=== PATIENT | female | born 1935 | race Caucasian/White ===

== ENCOUNTER 2016-09-05 16:19 | Inpatient (IN) | payer OTHER, BC ==
[~2016-09-05] VITALS: Ht 157.5 cm; Wt 69.5 kg
[~2016-09-05 16:19] MED LIST: AMLO10TA2 PO; AMLO5TAB4 PO; ASPI-515 PO; CALC-141 PO; CALC0.25 PO; CALC0.254 PO; CEFD300C37 PO; CLON0.3T47 PO; ENOX40SY4 SQ; FURO-93 PO; GABA100C PO; GABA100C8 PO; HYDR25TA11 PO; INSU100C5 SQ-INSULIN; INSU100I28 SQ-INSULIN; LEVO112C2 PO; LEVO112T25 PO; LEVO125T PO; LINE600T37 PO; MULT-6 PO; PANT40GR PO; PANT40TA5 PO; POTA10CA PO; POTA10TA57 PO; ROSU10TA PO; SPIR50TA2 PO
[2016-09-05] MEDS ORDERED: SODIUM CHLORIDE FLUSH 10ML SYR IVF ONE (17:00)
[2016-09-05 17:06] LABS: ASPARTATE AMINO TRANSFERASE 42 U/L (15-37); BLOOD UREA NITROGEN 37 mg/dL (7-18)
[2016-09-05 17:17] LABS: IS PT STATUS REG ER OR PRE ER? NO
[2016-09-05] MEDS ORDERED: FUROSEMIDE 40 MG/4 ML ONE (17:58)
[2016-09-05] MEDS ORDERED: FUROSEMIDE 40 MG/4 ML IV ONE (18:00)
[2016-09-05] MEDS ORDERED: GLUCAGON 1 MG IM PRN (19:30)
[2016-09-05] MEDS ORDERED: DEXTROSE 4 GM TAB.CHEW PO PRN (19:30)
[2016-09-05] MEDS ORDERED: POLYETHYLENE GLYCOL 17 GM PACKET PO PRN (19:30)
[2016-09-05] MEDS ORDERED: DOCUSATE 100 MG CAPSULE PO PRN (19:30)
[2016-09-05] MEDS ORDERED: BISACODYL 10 MG SUPP PR PRN (19:30)
[2016-09-05] MEDS ORDERED: ONDANSETRON 2MG/ML, 2ML IVPush PRN (19:30)
[2016-09-05] MEDS ORDERED: DEXTROSE 50%, 50ML SYRINGE IVPush PRN (19:30)
[2016-09-05 19:40] VITALS: BP 105/73
[2016-09-05] MEDS: ALBUTEROL SULFATE 2.5 MG/3 ML NPPB PRN (20:36)
[2016-09-05 20:49] VITALS: BP 105/73
[2016-09-05] MEDS ORDERED: CIT PO SCH (21:00)
[2016-09-05] MEDS: LEVOTHYROXINE 125 MCG TABLET PO SCH (21:00)
[2016-09-05] MEDS ORDERED: [UNRECOGNIZED DRUG - OTHER] PO SCH (21:00)
[2016-09-05] MEDS ORDERED: VIT D3 PO SCH (21:00)
[2016-09-05] MEDS ORDERED: CALCIUM CARB PO SCH (21:00)
[2016-09-05] MEDS: SODIUM CHLORIDE FLUSH 3ML SYRINGE IVF SCH (21:00)
[2016-09-05] MEDS ORDERED: AMLODIPINE 5 MG TABLET PO SCH (21:00)
[2016-09-05] MEDS: GABAPENTIN 100 MG CAPSULE PO SCH (21:58)
[2016-09-05] MEDS: SODIUM CHLORIDE FLUSH 10ML SYR IVF SCH (21:58)
[2016-09-05] MEDS: HEPARIN 5,000 UNITS/ML, 1ML SQ SCH (21:58)
[2016-09-05] MEDS: INSULIN ASPART 100 UNITS/ML, PEN SQ-INSULIN SCH (23:17)
[2016-09-06 00:04] LABS: IS PT STATUS REG ER OR PRE ER? NO
[2016-09-06 00:48] VITALS: BP 88/57
[2016-09-06 05:25] LABS: BLOOD UREA NITROGEN 36 mg/dL (7-18)
[2016-09-06 05:32] LABS: ASPARTATE AMINO TRANSFERASE 15 U/L (15-37)
[2016-09-06 05:34] LABS: IS PT STATUS REG ER OR PRE ER? NO
[2016-09-06] MEDS: HEPARIN 5,000 UNITS/ML, 1ML SQ SCH ×3 (06:11→21:06)
[2016-09-06] MEDS: SODIUM CHLORIDE FLUSH 3ML SYRINGE IVF SCH ×2 (07:41→21:00)
[2016-09-06] MEDS: SODIUM CHLORIDE FLUSH 10ML SYR IVF SCH (07:41)
[2016-09-06] MEDS: ASPIRIN 81 MG TABLET EC PO SCH (07:42)
[2016-09-06] MEDS: GABAPENTIN 100 MG CAPSULE PO SCH ×3 (07:42→21:07)
[2016-09-06] MEDS: MULTIVITAMIN 1 TABLET PO SCH (07:43)
[2016-09-06] MEDS: CALCITRIOL 0.25 MCG CAPSULE PO SCH (07:43)
[2016-09-06] MEDS: PANTOPROZOLE 40MG TABLET PO SCH (07:43)
[2016-09-06 07:50] VITALS: BP 89/62
[2016-09-06] MEDS: AMLODIPINE 5 MG TABLET PO SCH ×2 (09:00→21:07)
[2016-09-06] MEDS ORDERED: SPIRONOLACTONE 50 MG TABLET PO SCH ×2 (09:00)
[2016-09-06] MEDS: FUROSEMIDE 40 MG/4 ML IV SCH ×2 (09:00→13:16)
[2016-09-06] MEDS ORDERED: FUROSEMIDE 40 MG/4 ML IV SCH (09:00)
[2016-09-06] MEDS: INSULIN ASPART 100 UNITS/ML, PEN SQ-INSULIN SCH ×4 (09:49→21:10)
[2016-09-06] MEDS ORDERED: POTASSIUM CHLORIDE 20 MEQ TAB.ER.PRT PO SCH (10:00)
[2016-09-06] MEDS: INSULIN DETEMIR 100 UNITS/ML, PEN SQ-INSULIN SCH ×2 (13:10→21:09)
[2016-09-06] MEDS: POTASSIUM CHLORIDE 20 MEQ TAB.ER.PRT PO SCH (13:11)
[2016-09-06 13:20] VITALS: BP 102/62
[2016-09-06] MEDS: ALBUTEROL SULFATE 2.5 MG/3 ML NPPB PRN (15:30)
[2016-09-06] MEDS: ACETAMINOPHEN 325 MG TABLET PO PRN (17:25)
[2016-09-06 17:27] VITALS: BP 93/64
[2016-09-06 18:37] VITALS: BP 118/67
[2016-09-06] MEDS: LEVOTHYROXINE 125 MCG TABLET PO SCH (21:07)
[2016-09-07 02:01] VITALS: BP 86/56
[2016-09-07] MEDS: ACETAMINOPHEN 325 MG TABLET PO PRN (02:22)
[2016-09-07] MEDS: HEPARIN 5,000 UNITS/ML, 1ML SQ SCH ×3 (05:28→20:50)
[2016-09-07 07:56] VITALS: BP 95/62
[2016-09-07] MEDS: INSULIN ASPART 100 UNITS/ML, PEN SQ-INSULIN SCH ×4 (08:11→20:50)
[2016-09-07] MEDS: FUROSEMIDE 40 MG/4 ML IV SCH (08:11)
[2016-09-07] MEDS: INSULIN DETEMIR 100 UNITS/ML, PEN SQ-INSULIN SCH ×3 (08:11→20:51)
[2016-09-07] MEDS: AMLODIPINE 5 MG TABLET PO SCH (08:12)
[2016-09-07] MEDS: CALCITRIOL 0.25 MCG CAPSULE PO SCH (08:13)
[2016-09-07] MEDS: ASPIRIN 81 MG TABLET EC PO SCH (08:13)
[2016-09-07] MEDS: MULTIVITAMIN 1 TABLET PO SCH (08:13)
[2016-09-07] MEDS: POTASSIUM CHLORIDE 20 MEQ TAB.ER.PRT PO SCH ×2 (08:14→12:04)
[2016-09-07] MEDS: GABAPENTIN 100 MG CAPSULE PO SCH ×3 (08:14→20:50)
[2016-09-07] MEDS: SODIUM CHLORIDE FLUSH 3ML SYRINGE IVF SCH ×2 (08:15→21:00)
[2016-09-07] MEDS: PANTOPROZOLE 40MG TABLET PO SCH (08:15)
[2016-09-07 11:56] VITALS: BP 93/61
[2016-09-07] MEDS: FUROSEMIDE 20 MG/2 ML IV SCH ×2 (12:04→17:51)
[2016-09-07 12:47] VITALS: BP 90/59
[2016-09-07 17:54] VITALS: BP 93/65
[2016-09-07 19:46] VITALS: BP 118/75
[2016-09-07] MEDS: LEVOTHYROXINE 125 MCG TABLET PO SCH (20:50)
[2016-09-07] MEDS: ALBUTEROL SULFATE 2.5 MG/3 ML NPPB PRN (21:35)
[2016-09-08 00:11] VITALS: BP 94/59
[2016-09-08] MEDS: ALBUTEROL SULFATE 2.5 MG/3 ML NPPB PRN ×2 (01:02→22:53)
[2016-09-08] MEDS: ACETAMINOPHEN 325 MG TABLET PO PRN (01:55)
[2016-09-08 05:51] LABS: BLOOD UREA NITROGEN 26 mg/dL (7-18)
[2016-09-08] MEDS: FUROSEMIDE 20 MG/2 ML IV SCH ×2 (07:30→16:39)
[2016-09-08 07:53] VITALS: BP 109/72
[2016-09-08] MEDS: HEPARIN 5,000 UNITS/ML, 1ML SQ SCH ×3 (08:54→23:18)
[2016-09-08] MEDS: INSULIN ASPART 100 UNITS/ML, PEN SQ-INSULIN SCH ×4 (08:55→22:34)
[2016-09-08] MEDS: SODIUM CHLORIDE FLUSH 3ML SYRINGE IVF SCH ×2 (08:56→21:00)
[2016-09-08] MEDS: GABAPENTIN 100 MG CAPSULE PO SCH ×3 (08:56→22:33)
[2016-09-08] MEDS: POTASSIUM CHLORIDE 20 MEQ TAB.ER.PRT PO SCH (08:56)
[2016-09-08] MEDS: ASPIRIN 81 MG TABLET EC PO SCH (08:56)
[2016-09-08] MEDS: MULTIVITAMIN 1 TABLET PO SCH (08:57)
[2016-09-08] MEDS: CALCITRIOL 0.25 MCG CAPSULE PO SCH (08:57)
[2016-09-08] MEDS: PANTOPROZOLE 40MG TABLET PO SCH (08:57)
[2016-09-08] MEDS ORDERED: FUROSEMIDE 40 MG/4 ML IV SCH (09:00)
[2016-09-08] MEDS ORDERED: ERGOCALCIFEROL 50,000 UNIT CAPSULE PO SCH (11:30)
[2016-09-08] MEDS: INSULIN DETEMIR 100 UNITS/ML, PEN SQ-INSULIN SCH ×2 (11:40→22:34)
[2016-09-08 14:30] VITALS: BP 117/71
[2016-09-08 19:21] VITALS: BP 108/71
[2016-09-08] MEDS: LEVOTHYROXINE 125 MCG TABLET PO SCH (22:33)
[2016-09-09 01:17] VITALS: BP 99/62
[2016-09-09 06:31] VITALS: BP 106/68
[2016-09-09 07:46] LABS: BLOOD UREA NITROGEN 19 mg/dL (7-18)
[2016-09-09] MEDS: FUROSEMIDE 20 MG/2 ML IV SCH ×2 (08:42→17:00)
[2016-09-09] MEDS: HEPARIN 5,000 UNITS/ML, 1ML SQ SCH ×2 (08:42→15:00)
[2016-09-09] MEDS: GABAPENTIN 100 MG CAPSULE PO SCH ×2 (08:43→16:00)
[2016-09-09] MEDS: POTASSIUM CHLORIDE 20 MEQ TAB.ER.PRT PO SCH (08:43)
[2016-09-09] MEDS: PANTOPROZOLE 40MG TABLET PO SCH (08:43)
[2016-09-09] MEDS: MULTIVITAMIN 1 TABLET PO SCH (08:43)
[2016-09-09] MEDS: CALCITRIOL 0.25 MCG CAPSULE PO SCH (08:43)
[2016-09-09] MEDS: ASPIRIN 81 MG TABLET EC PO SCH (08:43)
[2016-09-09] MEDS: INSULIN ASPART 100 UNITS/ML, PEN SQ-INSULIN SCH ×3 (08:43→16:00)
[2016-09-09] MEDS: SODIUM CHLORIDE FLUSH 3ML SYRINGE IVF SCH (08:44)
[2016-09-09 13:11] VITALS: BP 135/80
[2016-09-09] MEDS: INSULIN DETEMIR 100 UNITS/ML, PEN SQ-INSULIN SCH (13:27)
[2016-09-09] MEDS ORDERED: DOCU-30 PO (17:10)
[2016-09-09] MEDS ORDERED: ERGO500017 PO (17:10)
[2016-09-09] MEDS ORDERED: POTA20TA6 PO (17:10)
[2016-09-09] MEDS ORDERED: FURO-93 PO (17:10)
[2016-09-09] MEDS ORDERED: INSU100I28 SQ-INSULIN (17:19)
== END 2016-09-09 17:56 | disposition home health service (06) | DRG 291 ==
LOC: ED 18:05 → EDIP 18:06 → ED 18:22 → 4EST 19:25
DX: I13.0 Hypertensive heart and chronic kidney disease with heart failure and stage 1 through stage 4 chronic kidney disease, or unspecified chronic kidney disease (principal); I50.33 Acute on chronic diastolic (congestive) heart failure; J96.01 Acute respiratory failure with hypoxia; E43 Unspecified severe protein-calorie malnutrition; N17.0 Acute kidney failure with tubular necrosis; D64.9 Anemia, unspecified; E03.9 Hypothyroidism, unspecified; E78.5 Hyperlipidemia, unspecified; E11.22 Type 2 diabetes mellitus with diabetic chronic kidney disease; E11.42 Type 2 diabetes mellitus with diabetic polyneuropathy; E55.9 Vitamin D deficiency, unspecified; E87.6 Hypokalemia; I34.0 Nonrheumatic mitral (valve) insufficiency; I48.91 Unspecified atrial fibrillation; N18.9 Chronic kidney disease, unspecified; Z80.9 Family history of malignant neoplasm, unspecified; Z82.49 Family history of ischemic heart disease and other diseases of the circulatory system; Z86.711 Personal history of pulmonary embolism; Z86.73 Personal history of transient ischemic attack (TIA), and cerebral infarction without residual deficits; Z87.891 Personal history of nicotine dependence; Z95.0 Presence of cardiac pacemaker; Z99.81 Dependence on supplemental oxygen; Z68.28 Body mass index [BMI] 28.0-28.9, adult
CPT/HCPCS: 36415; 71010; 80048; 80053; 82306; 82533; 82607; 82947; 82962; 83036; 83735; 83880; 84439; 84443; 84484; 85025; 93005; 93306; 94640; 96374; J1644; J1815; J1940; J7613

== ENCOUNTER → 2017-03-20 | Outpatient (CLI) | payer OTHER, BC ==
[~2017-03-20] MED LIST changes: +DOCU-131 PO; +ERGO500017 PO; +GABA-826 PO; -GABA100C8 PO; -LEVO112T25 PO; +LEVO112T41 PO; +POTA20TA6 PO
== END | disposition home or self-care (01) ==
LOC: CVU 13:44
PROVIDERS: ATTEND Nurse Practitioner
DX: M79.605 Pain in left leg (principal); M79.604 Pain in right leg; E11.9 Type 2 diabetes mellitus without complications
CPT/HCPCS: 93922

== ENCOUNTER 2018-01-27 13:31 | Emergency (ER) | payer OTHER, BC | END 2018-01-27 13:48 | disposition home or self-care (01) | LOC: ED 13:40 | DX: Z02.9 Encounter for administrative examinations, unspecified (principal) ==

== ENCOUNTER → 2018-01-27 | Outpatient (CLI) | payer OTHER, BC ==
[~2018-01-27] MED LIST changes: -AMLO10TA2 PO; +AMLO10TA6 PO; -SPIR50TA2 PO; +SPIR50TA4 PO
== END | disposition home or self-care (01) ==
LOC: RAD 13:48
PROVIDERS: ATTEND Nurse Practitioner
DX: M43.8X4 Other specified deforming dorsopathies, thoracic region (principal)
CPT/HCPCS: 72128

== ENCOUNTER 2019-05-29 20:42 | Inpatient (IN) | payer MEDICARE, BC ==
[~2019-05-29] VITALS: Ht 157.5 cm; Wt 70.5 kg
[~2019-05-29 20:42] MED LIST changes: -AMLO10TA6 PO; +AMLO10TA8 PO; +CLON0.3T PO; -CLON0.3T47 PO; +HYDR-826 PO; -HYDR25TA11 PO; +LINE600T12 PO; -LINE600T37 PO; -ROSU10TA PO; +ROSU10TA2 PO
--- NOTE | 2019-05-29 20:52 | NUR ---
PT BIB EMS TRANSFER FROM [facility] FOR NEURO CONSULT RELATED TO C2/C3 FRACTURES. PT HAS HAD INCREASED FALLS. RECENTLY FELL ON FACE. PT STATES SHE BROKE HER NOSE, CHEEKS ARE BRUISED. PT IN C COLLAR. PT DENIES N/T IN EXTREMETIES, DENIES LOC. PT LIVES W SON. DENIES PAIN. WAITING FOR FURTHER ORDERS.
[2019-05-29] MEDS ORDERED: ACETAMINOPHEN 325 MG TABLET ONE (21:45)
[2019-05-29 21:57] LABS: BASOPHILS # (AUTO) 0.01 x10^3/uL (0-0.1); BASOPHILS % (AUTO) 0 % (0-1); EOSINOPHILS # (AUTO) 0.19 x10^3/uL (0-0.4); EOSINOPHILS % (AUTO) 4 % (1-7); LYMPHOCYTES # (AUTO) 1.47 x10^3/uL (1-3.4); LYMPHOCYTES % (AUTO) 26 % (22-44); MD NO; MEAN CORPUSCULAR HGB CONC 33.7 g/dL (32.4-35.8); MEAN CORPUSCULAR VOLUME 97.9 fL (80-100); MEAN PLATELET VOLUME 9.5 fL (7.4-10.4); MONOCYTES # (AUTO) 0.42 x10^3/uL (0.2-0.8); MONOCYTES % (AUTO) 8 % (2-9); NEUTROPHILS # (AUTO) 3.49 x10^3/uL (1.8-6.8); NEUTROPHILS % (AUTO) 63 % (42-75); PLATELET COUNT 189 x10^3/uL (130-400); RED BLOOD COUNT 4.34 x10^6/uL (3.82-5.3); RED CELL DISTRIBUTION WIDTH 13.1 % (9.6-15.2)
--- NOTE | 2019-05-29 21:57 | NUR ---
ASSISTED PT TO [facility] W FULL ASSIST. MEDICATED W TYLENOL. CALL LIGHT IN REACH. PT HAS CELL PHONE AT BEDSIDE.
[2019-05-29] MEDS ORDERED: ACETAMINOPHEN 325 MG TABLET PO ONE (22:00)
[2019-05-29 22:08] LABS: ALBUMIN 3.1 g/dL (3.4-5.0); ANION GAP 5 mmol/L (5-15); CHLORIDE 98 mmol/L (98-107); CREATININE 1.77 mg/dL (0.55-1.02)
--- NOTE | 2019-05-29 22:42 | NUR ---
PT GIVEN WARM BLANKET, REPOSITIONED FOR COMFORT. PT ATTEMPTED TO CALL SON FOR UPDATED MED LIST.
[2019-05-29] MEDS ORDERED: INSU100V35 SC (23:17)
--- NOTE | 2019-05-29 23:27 | NUR ---
REPORT TO JESSY. PT READY FOR TRANSFER
[2019-05-29] MEDS ORDERED: MORPHINE SULFATE 4 MG/ML, 1ML IVPush PRN (23:30)
[2019-05-29] MEDS ORDERED: ONDANSETRON 2MG/ML, 2ML IVPush PRN (23:30)
[2019-05-30 00:13] VITALS: BP 146/89
[2019-05-30] MEDS ORDERED: LEVOTHYROXINE 125 MCG TABLET PO SCH ×2 (00:30→06:00)
[2019-05-30] MEDS ORDERED: ONDANSETRON ODT 4 MG PO PRN (00:30)
[2019-05-30] MEDS ORDERED: ERGOCALCIFEROL 50,000 UNIT CAPSULE PO SCH (00:30)
[2019-05-30] MEDS ORDERED: LIDODERM 5% PATCH TD PRN (00:30)
[2019-05-30] MEDS ORDERED: DOCUSATE 100 MG CAPSULE PO PRN ×2 (00:30)
[2019-05-30] MEDS: MULTIVITAMIN 1 TABLET PO SCH (07:49)
[2019-05-30] MEDS: FUROSEMIDE 20 MG TABLET PO SCH ×2 (07:49→19:59)
[2019-05-30] MEDS: PANTOPROZOLE 40MG TABLET PO SCH (07:49)
[2019-05-30] MEDS: CALCITRIOL 0.25 MCG CAPSULE PO SCH (07:49)
[2019-05-30] MEDS: CALCIUM/VITAMIN D3 250-125 TABLET PO SCH ×3 (07:49→23:49)
[2019-05-30] MEDS: POTASSIUM CHLORIDE 20 MEQ TAB.ER.PRT PO SCH ×3 (07:49→13:21)
[2019-05-30] MEDS: GABAPENTIN 100 MG CAPSULE PO SCH ×3 (07:49→23:49)
[2019-05-30 07:51] VITALS: BP 147/83
[2019-05-30] MEDS ORDERED: POTASSIUM CHLORIDE 20 MEQ TAB.ER.PRT PO SCH (09:30)
[2019-05-30] MEDS ORDERED: CEFDINIR 300 MG CAPSULE PO SCH (10:00)
[2019-05-30 11:14] LABS: MICROSCOPIC AUTO
[2019-05-30] MEDS: HEPARIN 5,000 UNITS/ML, 1ML SQ SCH ×2 (11:22→20:00)
[2019-05-30] MEDS: INSULIN LISPRO 100 UNITS/ML, PEN SQ-INSULIN SCH ×3 (11:50→23:56)
[2019-05-30 13:06] VITALS: BP 104/67
[2019-05-30] MEDS ORDERED: RIVA20TA PO (14:10)
[2019-05-30] MEDS ORDERED: AMLO2.5T5 PO (14:10)
[2019-05-30] MEDS ORDERED: CARV3.122 PO (14:10)
[2019-05-30] MEDS ORDERED: GLIP10TA13 PO (14:10)
[2019-05-30] MEDS ORDERED: POTA10CA PO (14:10)
[2019-05-30] MEDS ORDERED: LEVO112T4 PO (14:10)
[2019-05-30] MEDS ORDERED: ESCI10TA PO (14:10)
[2019-05-30 18:26] VITALS: BP 118/77
[2019-05-30] MEDS: CARVEDILOL 3.125 MG TABLET PO SCH (19:59)
[2019-05-30] MEDS ORDERED: CARVEDILOL 3.125 MG TABLET PO SCH (21:00)
[2019-05-30] MEDS: INSULIN GLARGINE 100 UNITS/ML, PEN SQ-INSULIN SCH (23:57)
[2019-05-31] MEDS ORDERED: TEMAZEPAM 15 MG CAPSULE PO ONE ×2 (02:15→21:00)
[2019-05-31 02:36] VITALS: BP 138/63
[2019-05-31] MEDS: HEPARIN 5,000 UNITS/ML, 1ML SQ SCH ×3 (03:30→20:13)
[2019-05-31 05:45] LABS: BASOPHILS # (AUTO) 0.03 x10^3/uL (0-0.1); BASOPHILS % (AUTO) 1 % (0-1); EOSINOPHILS # (AUTO) 0.16 x10^3/uL (0-0.4); EOSINOPHILS % (AUTO) 3 % (1-7); LYMPHOCYTES # (AUTO) 1.51 x10^3/uL (1-3.4); LYMPHOCYTES % (AUTO) 30 % (22-44); MD NO; MEAN CORPUSCULAR HEMOGLOBIN 33.1 pg (27.0-34.8); MEAN CORPUSCULAR HGB CONC 33.8 g/dL (32.4-35.8); MEAN CORPUSCULAR VOLUME 97.9 fL (80-100); MEAN PLATELET VOLUME 9.5 fL (7.4-10.4); MONOCYTES % (AUTO) 8 % (2-9); NEUTROPHILS # (AUTO) 2.98 x10^3/uL (1.8-6.8); NEUTROPHILS % (AUTO) 59 % (42-75); PLATELET COUNT 173 x10^3/uL (130-400); RED BLOOD COUNT 4.38 x10^6/uL (3.82-5.3)
[2019-05-31 05:54] LABS: ANION GAP 5 mmol/L (5-15); CALCIUM 9.3 mg/dL (8.5-10.1); CHLORIDE 103 mmol/L (98-107); CREATININE 1.58 mg/dL (0.55-1.02)
[2019-05-31 06:37] VITALS: BP 126/87
[2019-05-31] MEDS: MULTIVITAMIN 1 TABLET PO SCH ×2 (07:14→08:33)
[2019-05-31] MEDS: POTASSIUM CHLORIDE 20 MEQ TAB.ER.PRT PO SCH ×2 (07:14→08:34)
[2019-05-31] MEDS: CALCIUM/VITAMIN D3 250-125 TABLET PO SCH ×4 (07:15→20:13)
[2019-05-31] MEDS: LEVOTHYROXINE 112 MCG TABLET PO SCH (07:35)
[2019-05-31] MEDS: CALCITRIOL 0.25 MCG CAPSULE PO SCH (07:36)
[2019-05-31] MEDS: PANTOPROZOLE 40MG TABLET PO SCH (07:36)
[2019-05-31] MEDS: FUROSEMIDE 20 MG TABLET PO SCH ×2 (07:36→20:13)
[2019-05-31] MEDS: CEFDINIR 300 MG CAPSULE PO SCH (07:36)
[2019-05-31] MEDS: ESCITALOPRAM 10MG TABLET PO SCH (07:36)
[2019-05-31] MEDS: GABAPENTIN 100 MG CAPSULE PO SCH ×3 (07:36→20:13)
[2019-05-31] MEDS: CARVEDILOL 3.125 MG TABLET PO SCH ×2 (07:36→20:13)
[2019-05-31] MEDS: INSULIN LISPRO 100 UNITS/ML, PEN SQ-INSULIN SCH ×4 (07:39→20:13)
[2019-05-31] MEDS ORDERED: SODIUM CHLORIDE 0.9% 500 ML IV SCH (08:00)
[2019-05-31 09:20] LABS: INTERNATIONAL NORMALIZED RATIO 0.97 (0.93-1.1); PROTHROMBIN TIME 10.3 Seconds (9.6-11.5)
[2019-05-31 10:50] LABS: CLOSTRIDIUM DIFFICILE ANTIGEN POSITIVE; CLOSTRIDIUM DIFFICILE TOXIN NEGATIVE (Negative)
[2019-05-31 12:08] VITALS: BP 137/82
[2019-05-31] MEDS: VANCOMYCIN 50 MG/ML ORAL SUSP PO SCH ×2 (17:26→23:30)
[2019-05-31 18:41] VITALS: BP 119/76
[2019-05-31] MEDS: INSULIN GLARGINE 100 UNITS/ML, PEN SQ-INSULIN SCH (20:12)
[2019-06-01 01:25] VITALS: BP 145/83
[2019-06-01] MEDS: HEPARIN 5,000 UNITS/ML, 1ML SQ SCH ×2 (04:15→11:27)
[2019-06-01 05:59] LABS: CHLORIDE 104 mmol/L (98-107)
[2019-06-01 06:00] LABS: BASOPHILS # (AUTO) 0.03 x10^3/uL (0-0.1); BASOPHILS % (AUTO) 0 % (0-1); EOSINOPHILS # (AUTO) 0.22 x10^3/uL (0-0.4); EOSINOPHILS % (AUTO) 3 % (1-7); LYMPHOCYTES # (AUTO) 1.62 x10^3/uL (1-3.4); LYMPHOCYTES % (AUTO) 24 % (22-44); MD NO; MEAN CORPUSCULAR HEMOGLOBIN 32.5 pg (27.0-34.8); MEAN CORPUSCULAR HGB CONC 33.2 g/dL (32.4-35.8); MEAN CORPUSCULAR VOLUME 97.9 fL (80-100); MEAN PLATELET VOLUME 10.5 fL (7.4-10.4); MONOCYTES # (AUTO) 0.48 x10^3/uL (0.2-0.8); MONOCYTES % (AUTO) 7 % (2-9); NEUTROPHILS # (AUTO) 4.53 x10^3/uL (1.8-6.8); NEUTROPHILS % (AUTO) 66 % (42-75); PLATELET COUNT 165 x10^3/uL (130-400); RED BLOOD COUNT 4.49 x10^6/uL (3.82-5.3); RED CELL DISTRIBUTION WIDTH 13.1 % (9.6-15.2)
[2019-06-01 06:03] LABS: ANION GAP 5 mmol/L (5-15); CALCIUM 9.1 mg/dL (8.5-10.1); CREATININE 1.61 mg/dL (0.55-1.02)
[2019-06-01] MEDS: VANCOMYCIN 50 MG/ML ORAL SUSP PO SCH ×2 (06:23→11:27)
[2019-06-01 08:09] VITALS: BP 139/76
[2019-06-01] MEDS: LEVOTHYROXINE 112 MCG TABLET PO SCH (08:53)
[2019-06-01] MEDS: CARVEDILOL 3.125 MG TABLET PO SCH ×2 (08:54→20:27)
[2019-06-01] MEDS: POTASSIUM CHLORIDE 20 MEQ TAB.ER.PRT PO SCH (08:54)
[2019-06-01] MEDS: CEFDINIR 300 MG CAPSULE PO SCH (08:54)
[2019-06-01] MEDS: CALCITRIOL 0.25 MCG CAPSULE PO SCH (08:54)
[2019-06-01] MEDS: PANTOPROZOLE 40MG TABLET PO SCH (08:54)
[2019-06-01] MEDS: MULTIVITAMIN 1 TABLET PO SCH (08:54)
[2019-06-01] MEDS: GABAPENTIN 100 MG CAPSULE PO SCH ×3 (08:55→20:27)
[2019-06-01] MEDS: FUROSEMIDE 20 MG TABLET PO SCH ×2 (08:55→20:27)
[2019-06-01] MEDS: CALCIUM/VITAMIN D3 250-125 TABLET PO SCH ×3 (08:55→20:27)
[2019-06-01] MEDS: INSULIN LISPRO 100 UNITS/ML, PEN SQ-INSULIN SCH ×4 (08:57→20:28)
[2019-06-01] MEDS: ESCITALOPRAM 10MG TABLET PO SCH (08:57)
[2019-06-01] MEDS: ACETAMINOPHEN 325 MG TABLET PO PRN (12:57)
[2019-06-01 13:37] VITALS: BP 125/81
[2019-06-01] MEDS ORDERED: RIVAROXABAN 20 MG TABLET ONE (16:32)
[2019-06-01] MEDS ORDERED: RIVAROXABAN 15 MG TABLET PO SCH (17:00)
[2019-06-01] MEDS ORDERED: RIVAROXABAN 20 MG TABLET PO SCH (17:00)
[2019-06-01 18:34] VITALS: BP 122/74
[2019-06-01] MEDS: INSULIN GLARGINE 100 UNITS/ML, PEN SQ-INSULIN SCH (20:28)
[2019-06-02 00:39] VITALS: BP 149/81
[2019-06-02 05:50] LABS: BASOPHILS # (AUTO) 0.03 x10^3/uL (0-0.1); BASOPHILS % (AUTO) 1 % (0-1); EOSINOPHILS % (AUTO) 3 % (1-7); LYMPHOCYTES # (AUTO) 1.66 x10^3/uL (1-3.4); LYMPHOCYTES % (AUTO) 29 % (22-44); MD NO; MEAN CORPUSCULAR HEMOGLOBIN 32.4 pg (27.0-34.8); MEAN CORPUSCULAR VOLUME 98.2 fL (80-100); MEAN PLATELET VOLUME 10.2 fL (7.4-10.4); MONOCYTES # (AUTO) 0.48 x10^3/uL (0.2-0.8); MONOCYTES % (AUTO) 8 % (2-9); NEUTROPHILS # (AUTO) 3.43 x10^3/uL (1.8-6.8); NEUTROPHILS % (AUTO) 59 % (42-75); PLATELET COUNT 179 x10^3/uL (130-400); RED BLOOD COUNT 4.61 x10^6/uL (3.82-5.3); RED CELL DISTRIBUTION WIDTH 13.2 % (9.6-15.2)
[2019-06-02 06:01] LABS: ANION GAP 5 mmol/L (5-15); CALCIUM 9.2 mg/dL (8.5-10.1); CHLORIDE 105 mmol/L (98-107); CREATININE 1.84 mg/dL (0.55-1.02)
[2019-06-02 07:16] VITALS: BP 115/75
[2019-06-02] MEDS: INSULIN LISPRO 100 UNITS/ML, PEN SQ-INSULIN SCH ×4 (07:17→20:32)
[2019-06-02] MEDS: CEFDINIR 300 MG CAPSULE PO SCH (08:05)
[2019-06-02] MEDS: FUROSEMIDE 20 MG TABLET PO SCH ×2 (08:06→20:27)
[2019-06-02] MEDS: CALCIUM/VITAMIN D3 250-125 TABLET PO SCH ×3 (08:06→20:27)
[2019-06-02] MEDS: GABAPENTIN 100 MG CAPSULE PO SCH ×2 (08:06→08:10)
[2019-06-02] MEDS: CARVEDILOL 3.125 MG TABLET PO SCH ×2 (08:06→20:27)
[2019-06-02] MEDS: PANTOPROZOLE 40MG TABLET PO SCH (08:06)
[2019-06-02] MEDS: CALCITRIOL 0.25 MCG CAPSULE PO SCH (08:06)
[2019-06-02] MEDS: ESCITALOPRAM 10MG TABLET PO SCH (08:06)
[2019-06-02] MEDS: MULTIVITAMIN 1 TABLET PO SCH (08:06)
[2019-06-02] MEDS: POTASSIUM CHLORIDE 20 MEQ TAB.ER.PRT PO SCH (08:06)
[2019-06-02] MEDS: LEVOTHYROXINE 112 MCG TABLET PO SCH (08:06)
[2019-06-02] MEDS: GABAPENTIN 300 MG CAPSULE PO SCH ×2 (09:46→20:27)
[2019-06-02 13:20] VITALS: BP 106/69
[2019-06-02] MEDS ORDERED: RIVAROXABAN 15 MG TABLET PO SCH (17:00)
[2019-06-02] MEDS: ACETAMINOPHEN 325 MG TABLET PO PRN (17:23)
[2019-06-02 18:25] VITALS: BP 108/68
[2019-06-02] MEDS: INSULIN GLARGINE 100 UNITS/ML, PEN SQ-INSULIN SCH (20:31)
[2019-06-03 01:01] VITALS: BP 129/77
[2019-06-03 05:42] LABS: CHLORIDE 101 mmol/L (98-107)
[2019-06-03 05:47] LABS: ANION GAP 7 mmol/L (5-15); CALCIUM 9.1 mg/dL (8.5-10.1); CREATININE 1.73 mg/dL (0.55-1.02)
[2019-06-03 07:40] VITALS: BP 116/72
[2019-06-03] MEDS: INSULIN LISPRO 100 UNITS/ML, PEN SQ-INSULIN SCH ×2 (07:45→11:02)
[2019-06-03] MEDS: LEVOTHYROXINE 112 MCG TABLET PO SCH (08:48)
[2019-06-03] MEDS: MULTIVITAMIN 1 TABLET PO SCH (08:48)
[2019-06-03] MEDS: POTASSIUM CHLORIDE 20 MEQ TAB.ER.PRT PO SCH (08:48)
[2019-06-03] MEDS: FUROSEMIDE 20 MG TABLET PO SCH (08:48)
[2019-06-03] MEDS: CEFDINIR 300 MG CAPSULE PO SCH (08:48)
[2019-06-03] MEDS: GABAPENTIN 300 MG CAPSULE PO SCH (08:49)
[2019-06-03] MEDS: PANTOPROZOLE 40MG TABLET PO SCH (08:49)
[2019-06-03] MEDS: CALCITRIOL 0.25 MCG CAPSULE PO SCH (08:49)
[2019-06-03] MEDS: ESCITALOPRAM 10MG TABLET PO SCH (08:49)
[2019-06-03] MEDS: CARVEDILOL 3.125 MG TABLET PO SCH (08:49)
[2019-06-03] MEDS: CALCIUM/VITAMIN D3 250-125 TABLET PO SCH (08:49)
[2019-06-03] MEDS ORDERED: LIDO700A20 TD (09:26)
[2019-06-09] MEDS ORDERED: RIVA15TA PO (10:52)
== END 2019-06-03 11:50 | disposition home health service (06) | DRG 551 ==
LOC: ED 22:07 → EDIP 23:03 → 4NE 23:44 → DCLOUNGE 06-03 11:42
PROVIDERS: ADMIT Family Medicine; ATTEND Internal Medicine
DX: S12.110A Anterior displaced Type II dens fracture, initial encounter for closed fracture (principal); N17.0 Acute kidney failure with tubular necrosis; I50.32 Chronic diastolic (congestive) heart failure; I13.0 Hypertensive heart and chronic kidney disease with heart failure and stage 1 through stage 4 chronic kidney disease, or unspecified chronic kidney disease; D68.59 Other primary thrombophilia; E11.22 Type 2 diabetes mellitus with diabetic chronic kidney disease; E87.6 Hypokalemia; F03.90 Unspecified dementia, unspecified severity, without behavioral disturbance, psychotic disturbance, mood disturbance, and anxiety; I48.91 Unspecified atrial fibrillation; W18.39XA Other fall on same level, initial encounter; N18.3 Chronic kidney disease, stage 3 (moderate); E03.9 Hypothyroidism, unspecified; R29.6 Repeated falls; Z79.899 Other long term (current) drug therapy; Z87.891 Personal history of nicotine dependence; Z95.0 Presence of cardiac pacemaker; Y93.89 Activity, other specified; Y92.89 Other specified places as the place of occurrence of the external cause; Y99.8 Other external cause status
CPT/HCPCS: 36415; 80048; 81001; 82040; 82962; 83036; 83735; 84100; 84443; 85025; 85610; 85730; 87086; 87324; 87493; 93306; G0378; J1644; J3370; J1815

== ENCOUNTER 2019-08-14 02:26 | Emergency (ER) | payer MEDICARE, BC ==
[~2019-08-14] VITALS: Ht 172.7 cm; Wt 65.0 kg
[~2019-08-14 02:26] MED LIST changes: +AMLO2.5T5 PO; +CARV3.122 PO; +ESCI10TA PO; +GLIP10TA13 PO; +INSU100V35 SC; +LEVO112T4 PO; +LIDO700A20 TD; +RIVA15TA PO; +RIVA20TA PO
--- NOTE | 2019-08-14 02:28 | NUR ---
this is a 84y f Pt bib ems following a glf at home. Pt lost her balance and hit the back of her head and right wrist. Pt a&ox4, no loc. 1/2 cm laceration to back of head, bleeding controlled at this time. Pt also has skin tear and large hematoma to right wrist with full rom. Hx of recent neck fx, ccollar in place still. pt connected to all monitoring, vss nadn
--- NOTE | 2019-08-14 02:36 | NUR ---
PA AT BEDSIDE TO ASSESS PT
--- NOTE | 2019-08-14 02:53 | NUR ---
PT TO CT
[2019-08-14] MEDS ORDERED: LIDOCAINE 1%, 10ML INFIL ONE (03:00)
--- NOTE | 2019-08-14 03:07 | NUR ---
PT BACK FROM CT AT THIS TIME
[2019-08-14] MEDS ORDERED: LIDOCAINE-MPF 1%, 5ML ONE (03:22)
[2019-08-14 03:24] VITALS: BP 122/69
[2019-08-14] MEDS ORDERED: ACETAMINOPHEN 325 MG TABLET ONE (03:50)
[2019-08-14] MEDS ORDERED: ACETAMINOPHEN 325 MG TABLET PO ONE (04:00)
--- NOTE | 2019-08-14 04:13 | NUR ---
TECH AT BEDSIDE TO CLEAN WOUNDS FOR PA TO APPLY CLOSURES
[2019-08-14] MEDS ORDERED: BACITRACIN ZINC OINT 500U/GM, 0.9 GM ONE (04:48)
--- NOTE | 2019-08-14 04:51 | NUR ---
md at bedside for sutures
--- NOTE | 2019-08-14 05:24 | NUR ---
SPOKE WITH PT SON FOR RIDE HOME AT PT REQUEST. ERICA BELTRAN STS HE WILL BE HERE IN ABOUT 10-15 MINS.
[2019-08-17] MEDS ORDERED: LINA5TAB PO (21:40)
[2019-08-17] MEDS ORDERED: AMLO2.5T5 PO (21:40)
== END 2019-08-14 06:06 | disposition home or self-care (01) ==
LOC: ED 02:31
DX: S06.0X0A Concussion without loss of consciousness, initial encounter (principal); S52.514A Nondisplaced fracture of right radial styloid process, initial encounter for closed fracture; S01.01XA Laceration without foreign body of scalp, initial encounter; S61.511A Laceration without foreign body of right wrist, initial encounter; S16.1XXA Strain of muscle, fascia and tendon at neck level, initial encounter; E11.9 Type 2 diabetes mellitus without complications; I11.0 Hypertensive heart disease with heart failure; I50.9 Heart failure, unspecified; E78.5 Hyperlipidemia, unspecified; E03.9 Hypothyroidism, unspecified; W01.0XXA Fall on same level from slipping, tripping and stumbling without subsequent striking against object, initial encounter; Y93.89 Activity, other specified; Y92.009 Unspecified place in unspecified non-institutional (private) residence as the place of occurrence of the external cause; Y99.8 Other external cause status
CPT/HCPCS: 12031; 12044; 70450; 72125; 99285

== ENCOUNTER 2020-01-01 20:08 | Inpatient (IN) | payer MEDICARE, BC ==
[~2020-01-01] VITALS: Ht 157.5 cm; Wt 67.6 kg
[~2020-01-01 20:08] MED LIST changes: +ACID1TAB7 PO; +LEVO500T8 PO; +LINA5TAB PO; -PANT40TA5 PO; +PANT40TA6 PO
[2020-01-01] MEDS ORDERED: L.E.T SOLUTION TP ONE ×2 (20:30→20:53)
[2020-01-01 21:02] LABS: BASOPHILS # (AUTO) 0.04 x10^3/uL (0-0.1); BASOPHILS % (AUTO) 0 % (0-1); EOSINOPHILS # (AUTO) 0.14 x10^3/uL (0-0.4); EOSINOPHILS % (AUTO) 2 % (1-7); LYMPHOCYTES # (AUTO) 0.62 x10^3/uL (1-3.4); LYMPHOCYTES % (AUTO) 7 % (22-44); MD NO; MEAN CORPUSCULAR HEMOGLOBIN 31.2 pg (27.0-34.8); MEAN CORPUSCULAR HGB CONC 31.9 g/dL (32.4-35.8); MEAN CORPUSCULAR VOLUME 97.8 fL (80-100); MEAN PLATELET VOLUME 8.4 fL (7.4-10.4); MONOCYTES # (AUTO) 0.46 x10^3/uL (0.2-0.8); MONOCYTES % (AUTO) 5 % (2-9); NEUTROPHILS # (AUTO) 7.91 x10^3/uL (1.8-6.8); NEUTROPHILS % (AUTO) 86 % (42-75); PLATELET COUNT 245 x10^3/uL (130-400); RED BLOOD COUNT 4.02 x10^6/uL (3.82-5.3); RED CELL DISTRIBUTION WIDTH 13.4 % (9.6-15.2)
[2020-01-01 21:09] LABS: ALBUMIN 3.1 g/dL (3.4-5.0); ANION GAP 7 mmol/L (5-15); CALCIUM 7.7 mg/dL (8.5-10.1); CHLORIDE 105 mmol/L (98-107)
[2020-01-01 21:20] LABS: CREATININE 1.39 mg/dL (0.55-1.02)
[2020-01-01] MEDS ORDERED: POTASSIUM CHLORIDE 20 MEQ TAB.ER.PRT PO ONE (21:30)
[2020-01-01 21:42] LABS: FREE T4 (FREE THYROXINE) 1.42 ng/dL (0.76-1.46)
--- NOTE | 2020-01-01 21:59 | NUR ---
RN ASSIT: MINI CATH DONE. PT TOLERATED WELL. UA WALKED TO LAB. PT EATING. WILL PLACE PIV WHEN PT IS FINISHED
[2020-01-01 22:06] LABS: MICROSCOPIC NOT IND
[2020-01-01] MEDS ORDERED: POTASSIUM CHLORIDE 20 MEQ TAB.ER.PRT ONE (22:09)
--- NOTE | 2020-01-01 22:30 | NUR ---
REPORT GIVEN TO LENI MELENDEZ. ALL QUESTIONS ANSWERED
--- NOTE | 2020-01-01 22:35 | NUR ---
ATTEMPT AT IV X 5 WITH NO LUCK. WILL CONTINUE TO ATTEMPT TO GET IV ACCESS.
[2020-01-01 23:21] VITALS: BP 174/70
[2020-01-02] VITALS (10 sets, daily range): BP systolic 76–131; BP diastolic 48–77
[2020-01-02] MEDS ORDERED: GLUCAGON 1 MG IM PRN
[2020-01-02] MEDS ORDERED: DEXTROSE 50%, 50ML SYRINGE IVPush PRN
[2020-01-02] MEDS ORDERED: DEXTROSE 4 GM TAB.CHEW PO PRN
[2020-01-02] MEDS ORDERED: FURO-93 PO (00:09)
[2020-01-02] MEDS: GABAPENTIN 100 MG CAPSULE PO SCH ×3 (00:20→21:22)
[2020-01-02] MEDS: CALCIUM CARBONATE 500 MG TABLET PO SCH ×4 (00:20→21:22)
[2020-01-02] MEDS ORDERED: ESCI10TA10 PO (00:54)
[2020-01-02] MEDS ORDERED: ASPI81TA45 PO (00:54)
[2020-01-02] MEDS ORDERED: ATOR40TA78 PO (00:54)
[2020-01-02] MEDS ORDERED: INSU100V35 SQ-INSULIN (00:56)
[2020-01-02] MEDS ORDERED: POTA20TA89 PO (00:58)
[2020-01-02] MEDS: SODIUM CHLORIDE FLUSH 10ML SYR IVF SCH ×2 (07:59→21:23)
[2020-01-02] MEDS: PANTOPRAZOLE 40MG TABLET PO SCH (08:00)
[2020-01-02] MEDS: LINAGLIPTIN 5 MG TAB PO SCH (08:00)
[2020-01-02] MEDS: LEVOTHYROXINE 112 MCG TABLET PO SCH (08:00)
[2020-01-02] MEDS: CARVEDILOL 3.125 MG TABLET PO SCH ×2 (08:00→21:21)
[2020-01-02] MEDS: MULTIVITAMIN 1 TABLET PO SCH (08:00)
[2020-01-02] MEDS: CALCITRIOL 0.25 MCG CAPSULE PO SCH (08:00)
[2020-01-02] MEDS: INSULIN LISPRO 100 UNITS/ML, PEN SQ-INSULIN SCH ×4 (08:49→21:22)
[2020-01-02] MEDS ORDERED: GABAPENTIN 100 MG CAPSULE PO SCH (09:00)
[2020-01-02] MEDS ORDERED: ACETAMINOPHEN 325 MG TABLET PO PRN (09:00)
[2020-01-02] MEDS ORDERED: DOXYCYCLINE 100MG TABLET PO SCH (10:00)
[2020-01-02] MEDS: LACTOBACILLUS CHEW TABLET PO SCH ×3 (11:02→21:22)
[2020-01-02] MEDS: HEPARIN 5,000 UNITS/ML, 1ML SQ SCH ×2 (11:02→16:19)
[2020-01-02 11:03] LABS: ANION GAP 5 mmol/L (5-15); CHLORIDE 108 mmol/L (98-107)
[2020-01-03 00:57] VITALS: BP 103/69
[2020-01-03] MEDS: HEPARIN 5,000 UNITS/ML, 1ML SQ SCH ×2 (01:03→08:02)
[2020-01-03] MEDS: LEVOTHYROXINE 112 MCG TABLET PO SCH (05:05)
[2020-01-03 05:33] LABS: CHLORIDE 108 mmol/L (98-107)
[2020-01-03 05:38] LABS: ANION GAP 5 mmol/L (5-15); CALCIUM 9.1 mg/dL (8.5-10.1)
[2020-01-03] MEDS: CALCITRIOL 0.25 MCG CAPSULE PO SCH (08:01)
[2020-01-03] MEDS: MULTIVITAMIN 1 TABLET PO SCH (08:01)
[2020-01-03] MEDS: PANTOPRAZOLE 40MG TABLET PO SCH (08:02)
[2020-01-03] MEDS: CALCIUM CARBONATE 500 MG TABLET PO SCH (08:02)
[2020-01-03] MEDS: GABAPENTIN 100 MG CAPSULE PO SCH (08:02)
[2020-01-03] MEDS: LACTOBACILLUS CHEW TABLET PO SCH (08:02)
[2020-01-03] MEDS: LINAGLIPTIN 5 MG TAB PO SCH (08:02)
[2020-01-03] MEDS: CARVEDILOL 3.125 MG TABLET PO SCH (08:02)
[2020-01-03] MEDS: INSULIN LISPRO 100 UNITS/ML, PEN SQ-INSULIN SCH (08:03)
[2020-01-03 08:06] VITALS: BP 104/71
[2020-01-03 08:07] VITALS: BP 151/81
[2020-01-03] MEDS: SODIUM CHLORIDE FLUSH 10ML SYR IVF SCH (08:11)
[2020-01-03 08:31] VITALS: BP 111/76
[2020-01-03] MEDS ORDERED: INSULIN LISPRO 100 UNITS/ML, PEN SQ-INSULIN SCH (11:00)
[2020-01-03 12:35] VITALS: BP 124/65
== END 2020-01-03 15:20 | disposition home health service (06) | DRG 638 ==
LOC: ED 21:03 → EDIP 21:28 → 5SO 23:15 → DCLOUNGE 01-03 15:13
PROVIDERS: ADMIT Internal Medicine; ATTEND Internal Medicine
DX: E11.649 Type 2 diabetes mellitus with hypoglycemia without coma (principal); I13.0 Hypertensive heart and chronic kidney disease with heart failure and stage 1 through stage 4 chronic kidney disease, or unspecified chronic kidney disease; I50.32 Chronic diastolic (congestive) heart failure; N18.3 Chronic kidney disease, stage 3 (moderate); I48.91 Unspecified atrial fibrillation; E11.43 Type 2 diabetes mellitus with diabetic autonomic (poly)neuropathy; E11.42 Type 2 diabetes mellitus with diabetic polyneuropathy; E11.22 Type 2 diabetes mellitus with diabetic chronic kidney disease; E78.5 Hyperlipidemia, unspecified; E87.6 Hypokalemia; F03.90 Unspecified dementia, unspecified severity, without behavioral disturbance, psychotic disturbance, mood disturbance, and anxiety; G89.29 Other chronic pain; K21.9 Gastro-esophageal reflux disease without esophagitis; M81.0 Age-related osteoporosis without current pathological fracture; N17.9 Acute kidney failure, unspecified; R29.6 Repeated falls; E11.65 Type 2 diabetes mellitus with hyperglycemia; S00.83XA Contusion of other part of head, initial encounter; S16.1XXA Strain of muscle, fascia and tendon at neck level, initial encounter; G54.0 Brachial plexus disorders; S61.411A Laceration without foreign body of right hand, initial encounter; W18.30XA Fall on same level, unspecified, initial encounter; Y93.89 Activity, other specified; Y92.89 Other specified places as the place of occurrence of the external cause; Y99.8 Other external cause status; Z79.4 Long term (current) use of insulin; Z79.82 Long term (current) use of aspirin; Z85.850 Personal history of malignant neoplasm of thyroid; Z86.711 Personal history of pulmonary embolism; Z86.73 Personal history of transient ischemic attack (TIA), and cerebral infarction without residual deficits; Z87.891 Personal history of nicotine dependence; E03.9 Hypothyroidism, unspecified; F45.8 Other somatoform disorders
CPT/HCPCS: 36415; 70450; 72125; 80048; 81003; 82040; 82962; 83036; 83735; 84439; 84443; 84481; 85025; 93005; 99285; G0378; J1644; J1815

== ENCOUNTER 2020-01-30 21:27 | Emergency (ER) | payer MEDICARE, BC ==
[~2020-01-30] VITALS: Ht 157.5 cm; Wt 66.9 kg
[~2020-01-30 21:27] MED LIST changes: +ASPI81TA45 PO; +ATOR40TA78 PO; +ESCI10TA10 PO; +INSU100V35 SQ-INSULIN; +POTA20TA89 PO
[2020-01-30 21:35] VITALS: BP 141/51
[2020-01-30] MEDS ORDERED: HYDROcodone/APAP 5/325 TABLET PO ONE (22:00)
[2020-01-30] MEDS ORDERED: HYDROcodone/APAP 5/325 TABLET ONE (22:01)
--- NOTE | 2020-01-30 23:33 | NUR ---
PER MD REQUEST, PATIENT WAS AMBULATED WITH A WALKER. SHE HAD NO DIFFICULTY AMBULATING WITH A STEADY GAIT. SHE WAS ALSO GIVEN A INCENTIVE SPIROMETER AND WAS ABLE TO GIVE A RETURN DEMONSTRATION.
== END 2020-01-31 00:06 | disposition home or self-care (01) ==
LOC: ED 22:20
DX: S22.41XA Multiple fractures of ribs, right side, initial encounter for closed fracture (principal); S20.211A Contusion of right front wall of thorax, initial encounter; E11.65 Type 2 diabetes mellitus with hyperglycemia; I11.0 Hypertensive heart disease with heart failure; I50.9 Heart failure, unspecified; E03.9 Hypothyroidism, unspecified; E78.5 Hyperlipidemia, unspecified; Z87.891 Personal history of nicotine dependence; W01.0XXA Fall on same level from slipping, tripping and stumbling without subsequent striking against object, initial encounter; Y93.89 Activity, other specified; Y92.009 Unspecified place in unspecified non-institutional (private) residence as the place of occurrence of the external cause; Y99.8 Other external cause status
CPT/HCPCS: 71250; 99284

== ENCOUNTER 2020-03-01 11:06 | Emergency (ER) | payer MEDICARE, BC ==
[~2020-03-01] VITALS: Ht 157.5 cm; Wt 65.4 kg
[~2020-03-01 11:06] MED LIST changes: +AMLO-211 PO; -AMLO10TA8 PO
--- NOTE | 2020-03-01 12:19 | NUR ---
C/O RIB PAIN X2 DAYS, DENIES FALL OR TRAUMA. PLACED ON VITALS MONITORING. FALL PRECAUTIONS IN PLACE, CALL LIGHT WITHIN REACH.
[2020-03-01 12:49] LABS: BASOPHILS % (AUTO) 1 % (0-1); EOSINOPHILS % (AUTO) 4 % (1-7); LYMPHOCYTES % (AUTO) 27 % (22-44); MEAN CORPUSCULAR HEMOGLOBIN 31.8 pg (27.0-34.8); MEAN CORPUSCULAR HGB CONC 33.1 g/dL (32.4-35.8); MONOCYTES % (AUTO) 8 % (2-9); NEUTROPHILS % (AUTO) 60 % (42-75); PLATELET COUNT 231 x10^3/uL (130-400); RED BLOOD COUNT 4.52 x10^6/uL (3.82-5.3); RED CELL DISTRIBUTION WIDTH 12.7 % (9.6-15.2)
[2020-03-01 12:52] LABS: MD NO
[2020-03-01 12:54] LABS: ALANINE AMINOTRANSFERASE 15 U/L (12-78); ALBUMIN 3.3 g/dL (3.4-5.0); ANION GAP 6 mmol/L (5-15); CALCIUM 6.8 mg/dL (8.5-10.1); CHLORIDE 102 mmol/L (98-107); CREATININE 1.76 mg/dL (0.55-1.02)
[2020-03-01 12:58] LABS: ALKALINE PHOSPHATASE 122 U/L (45-117); BILIRUBIN,TOTAL 0.4 mg/dL (0.2-1.0); TOTAL PROTEIN 8.5 g/dL (6.4-8.2); TROPONIN I < 0.015 ng/mL (0.000-0.045)
[2020-03-01 13:00] LABS: MICROSCOPIC AUTO
--- NOTE | 2020-03-01 13:56 | NUR ---
PT TRANSPORTED TO CT.
[2020-03-01] MEDS ORDERED: OMNIPAQUE 350 MG/ML, 75ML BOTTLE ONE (14:11)
[2020-03-01] MEDS ORDERED: SODIUM CHLORIDE 0.9% 1,000ML IVBOLUS ONE (15:00)
--- NOTE | 2020-03-01 15:41 | NUR ---
UP AMBULATORY TO THE BR
[2020-03-01 16:06] VITALS: BP 154/77
== END 2020-03-01 16:20 | disposition home or self-care (01) ==
LOC: ED 12:16
DX: R07.89 Other chest pain (principal); R06.02 Shortness of breath; I13.0 Hypertensive heart and chronic kidney disease with heart failure and stage 1 through stage 4 chronic kidney disease, or unspecified chronic kidney disease; E11.22 Type 2 diabetes mellitus with diabetic chronic kidney disease; N18.2 Chronic kidney disease, stage 2 (mild); I50.9 Heart failure, unspecified; I25.10 Atherosclerotic heart disease of native coronary artery without angina pectoris; E78.5 Hyperlipidemia, unspecified
CPT/HCPCS: 36415; 71046; 71275; 80053; 81001; 84484; 85025; 85379; 87086; 93005; 99285; J7030; Q9967

== ENCOUNTER 2020-03-20 13:51 | Emergency (ER) | payer MEDICARE, BC ==
[~2020-03-20] VITALS: Ht 157.5 cm; Wt 67.1 kg
[2020-03-20 14:12] VITALS: BP 145/52
[2020-03-20] MEDS ORDERED: HYDROcodone/APAP 5/325 TABLET ONE (15:15)
[2020-03-20] MEDS ORDERED: HYDROcodone/APAP 5/325 TABLET PO ONE (15:30)
--- NOTE | 2020-03-20 15:59 | NUR ---
DC FROM TRIAGE
== END 2020-03-20 16:01 | disposition home or self-care (01) ==
LOC: ED 15:55
DX: B02.9 Zoster without complications (principal); I10 Essential (primary) hypertension; E11.9 Type 2 diabetes mellitus without complications
CPT/HCPCS: 99283

== ENCOUNTER 2020-03-21 18:59 | Emergency (ER) | payer MEDICARE, BC ==
[~2020-03-21] VITALS: Ht 157.5 cm; Wt 70.0 kg
[2020-03-21 19:49] LABS: BASOPHILS % (AUTO) 1 % (0-1); EOSINOPHILS % (AUTO) 1 % (1-7); LYMPHOCYTES % (AUTO) 14 % (22-44); MEAN CORPUSCULAR HEMOGLOBIN 31.8 pg (27.0-34.8); MEAN CORPUSCULAR HGB CONC 33.1 g/dL (32.4-35.8); MEAN PLATELET VOLUME 8.5 fL (7.4-10.4); MONOCYTES % (AUTO) 12 % (2-9); NEUTROPHILS % (AUTO) 72 % (42-75); PLATELET COUNT 167 x10^3/uL (130-400); RED BLOOD COUNT 3.84 x10^6/uL (3.82-5.3); RED CELL DISTRIBUTION WIDTH 13.3 % (9.6-15.2)
[2020-03-21 20:00] LABS: ANION GAP 7 mmol/L (5-15); CALCIUM 6.8 mg/dL (8.5-10.1); CHLORIDE 103 mmol/L (98-107); CREATININE 1.86 mg/dL (0.55-1.02)
[2020-03-21 20:02] LABS: MD NO
--- NOTE | 2020-03-21 20:58 | NUR ---
pt moved to trauma 1 room a&ox4. no distress. calm and cooperative.
--- NOTE | 2020-03-21 20:58 | NUR ---
pt has a splint on left hand from old fall, 5 months ago. call light within reach and advised to call staff if she needs assistance. guardrails up, on cr monitor, and o2 sat.
[2020-03-21 21:19] VITALS: BP 123/46
== END 2020-03-21 22:04 | disposition home or self-care (01) ==
LOC: ED 22:00
DX: B02.9 Zoster without complications (principal); R11.0 Nausea; R06.02 Shortness of breath; R09.02 Hypoxemia; R94.31 Abnormal electrocardiogram [ECG] [EKG]; E11.9 Type 2 diabetes mellitus without complications; I25.10 Atherosclerotic heart disease of native coronary artery without angina pectoris; I11.0 Hypertensive heart disease with heart failure; I50.9 Heart failure, unspecified; E78.5 Hyperlipidemia, unspecified; Z87.891 Personal history of nicotine dependence
CPT/HCPCS: 36415; 71045; 80048; 85025; 93005; 99285

== ENCOUNTER 2020-04-09 13:23 | Emergency (ER) | payer MEDICARE, BC ==
[~2020-04-09] VITALS: Ht 157.5 cm; Wt 64.0 kg
[~2020-04-09 13:23] MED LIST changes: +FURO20TA3 PO
--- NOTE | 2020-04-09 13:37 | NUR ---
BIB EMS FOR SOB. PT STATES "I COULDNT BREATH". HX OF DM, HTN, CHF BASELINE 2L OXYGEN, HYPOTHYROID. PT STATES SHE TAKES LASIX 20MG BID WHICH SHE TOOK THIS AM. STATES NO CHANGE IN SOB WITH MEDICATION. MONITORS CONNECTED. EKG IN PROGRESS. WARM BLANKETS PROVIDED.
[2020-04-09] MEDS ORDERED: DILTIAZEM 5 MG/ML, 5ML ONE (13:55)
[2020-04-09] MEDS ORDERED: SODIUM CHLORIDE FLUSH 10ML SYR IVF ONE (14:00)
[2020-04-09 14:15] LABS: BASOPHILS % (AUTO) 1 % (0-1); EOSINOPHILS % (AUTO) 2 % (1-7); LYMPHOCYTES % (AUTO) 18 % (22-44); MEAN CORPUSCULAR HEMOGLOBIN 32.7 pg (27.0-34.8); MEAN PLATELET VOLUME 8.4 fL (7.4-10.4); MONOCYTES % (AUTO) 7 % (2-9); NEUTROPHILS % (AUTO) 72 % (42-75); PLATELET COUNT 265 x10^3/uL (130-400); RED BLOOD COUNT 4.13 x10^6/uL (3.82-5.3); RED CELL DISTRIBUTION WIDTH 13.9 % (9.6-15.2)
[2020-04-09 14:18] LABS: MD NO
--- NOTE | 2020-04-09 14:25 | NUR ---
DISCHARGE INSTRUCTIONS EXPLAINED TO PT. PT VERBALIZED UNDERSTANDING. TETANES VACCINE ADMINISTERED AND EDUCATION PROVIDED. PT. AMBULATED TO DISCHARGE WITHOUT INCIDENT
[2020-04-09 14:36] LABS: ALANINE AMINOTRANSFERASE 27 U/L (12-78); ALBUMIN 3.2 g/dL (3.4-5.0); ANION GAP 6 mmol/L (5-15); CALCIUM 6.4 mg/dL (8.5-10.1); CHLORIDE 104 mmol/L (98-107); CREATININE 1.56 mg/dL (0.55-1.02)
--- NOTE | 2020-04-09 14:39 | NUR ---
PT SITTING UP ON GURNEY. WILL ASSIST TO BATHROOM. VSS. NAD.
[2020-04-09 14:40] LABS: ALKALINE PHOSPHATASE 108 U/L (45-117); BILIRUBIN,TOTAL 0.4 mg/dL (0.2-1.0); TOTAL PROTEIN 8.7 g/dL (6.4-8.2); TROPONIN I < 0.015 ng/mL (0.000-0.045)
[2020-04-09] MEDS ORDERED: CALCIUM GLUCONATE 0.46MEQ/1ML IVPush ONE (15:00)
[2020-04-09] MEDS ORDERED: CALCIUM GLUCONATE 4.6 MEQ/10 ML ONE (15:06)
--- NOTE | 2020-04-09 15:15 | NUR ---
[place] CALCIUM ADM[place]. VSS. NAD. STATES NO ADDITIONAL NEEDS AT THIS TIME
--- NOTE | 2020-04-09 15:33 | NUR ---
PT PROVIDED WATER PER MD POLLOCK
--- NOTE | 2020-04-09 16:15 | NUR ---
[place] VSS. NAD. NO ADDITIONAL NEEDS AT THIS TIME
--- NOTE | 2020-04-09 17:00 | NUR ---
BREAK RN: PT CALLED SON FOR DC. SON TO BRING PT'S HOME OXYGEN. VS STABLE. CALL LIGHT IN PLACE. WILL CONTINUE TO MONITOR.
[2020-04-09 18:16] VITALS: BP 145/61
--- NOTE | 2020-04-09 18:16 | NUR ---
DISCHARGE INSTRUCTIONS EXPLAINED TO PT. AND SON. BOTH VERBALIZED UNDERSTANDING. QUESTIONS ANSWERED. PT .DISCHARGED VIA WHEELCHAIR WITH HOME OXYGEN. HOME OXYGEN AMOUNT LOW IN TANK. PT. SON INSTRUCTED TO TAKE PT. STRAIGHT HOME. ALL BELONGINGS WITH PT. SON.
== END 2020-04-09 18:19 | disposition home or self-care (01) ==
LOC: ED 14:25
DX: R06.00 Dyspnea, unspecified (principal); I13.0 Hypertensive heart and chronic kidney disease with heart failure and stage 1 through stage 4 chronic kidney disease, or unspecified chronic kidney disease; I50.9 Heart failure, unspecified; N18.2 Chronic kidney disease, stage 2 (mild); E11.65 Type 2 diabetes mellitus with hyperglycemia; E83.51 Hypocalcemia; I25.10 Atherosclerotic heart disease of native coronary artery without angina pectoris; E03.9 Hypothyroidism, unspecified
CPT/HCPCS: 36415; 71045; 80053; 82310; 82962; 83735; 83880; 84484; 85025; 93005; 96374; 99285; J0610

== ENCOUNTER → 2020-04-10 | Outpatient (CLI) | payer MEDICARE, BC | END | disposition home or self-care (01) | LOC: RAD 12:39 | PROVIDERS: ATTEND Registered Nurse | DX: E78.2 Mixed hyperlipidemia (principal); I47.2 Ventricular tachycardia; I48.20 Chronic atrial fibrillation, unspecified; I48.91 Unspecified atrial fibrillation; I12.9 Hypertensive chronic kidney disease with stage 1 through stage 4 chronic kidney disease, or unspecified chronic kidney disease; E11.22 Type 2 diabetes mellitus with diabetic chronic kidney disease; I50.30 Unspecified diastolic (congestive) heart failure; I11.0 Hypertensive heart disease with heart failure; N18.9 Chronic kidney disease, unspecified; Z95.0 Presence of cardiac pacemaker | CPT/HCPCS: 71046 ==

== ENCOUNTER 2020-05-09 05:35 | Emergency (ER) | payer MEDICARE, BC ==
[~2020-05-09] VITALS: Ht 157.5 cm; Wt 64.4 kg
[~2020-05-09 05:35] MED LIST changes: -ESCI10TA PO; +ESCI10TA5 PO
--- NOTE | 2020-05-09 05:55 | NUR ---
assessment made. ERP at bedside. patient c/o bilateral leg pain- resolved after taking tylenol.
--- NOTE | 2020-05-09 06:20 | NUR ---
lab at bedside for blood draw.
--- NOTE | 2020-05-09 06:38 | NUR ---
debug technician at bedside.
[2020-05-09 06:40] LABS: BASOPHILS % (AUTO) 1 % (0-1); EOSINOPHILS % (AUTO) 3 % (1-7); LYMPHOCYTES % (AUTO) 16 % (22-44); MEAN CORPUSCULAR HEMOGLOBIN 32.7 pg (27.0-34.8); MEAN CORPUSCULAR HGB CONC 33.7 g/dL (32.4-35.8); MEAN PLATELET VOLUME 8.5 fL (7.4-10.4); MONOCYTES % (AUTO) 6 % (2-9); NEUTROPHILS % (AUTO) 74 % (42-75); PLATELET COUNT 235 x10^3/uL (130-400); RED BLOOD COUNT 3.56 x10^6/uL (3.82-5.3)
[2020-05-09 06:48] LABS: MD NO
[2020-05-09 06:49] LABS: ALBUMIN 3.1 g/dL (3.4-5.0); ANION GAP 5 mmol/L (5-15); CALCIUM 8.2 mg/dL (8.5-10.1); CHLORIDE 105 mmol/L (98-107)
--- NOTE | 2020-05-09 06:50 | NUR ---
report to LENI Hollis.
[2020-05-09 06:58] VITALS: BP 101/62
--- NOTE | 2020-05-09 06:58 | NUR ---
REPORT FROM EDMUND. PT RESTING. DENIES PAIN IN LEGS AT THIS TIME
--- NOTE | 2020-05-09 07:48 | NUR ---
Patientgiven discharge instructions and they have confirmed that they understand the instructions. Patient wheelchaired to lobby, family to cook pickled meat.
== END 2020-05-09 07:55 | disposition home or self-care (01) ==
LOC: ED 07:23
DX: M79.662 Pain in left lower leg (principal); M79.661 Pain in right lower leg; E11.9 Type 2 diabetes mellitus without complications; I11.0 Hypertensive heart disease with heart failure; I50.9 Heart failure, unspecified; E03.9 Hypothyroidism, unspecified; Z87.891 Personal history of nicotine dependence
CPT/HCPCS: 36415; 80048; 82040; 85025; 93970; 99284

== ENCOUNTER 2020-05-29 12:00 | Observation (INO) | payer MEDICARE, BC ==
[~2020-05-29] VITALS: Ht 157.5 cm; Wt 65.8 kg
[~2020-05-29 12:00] MED LIST changes: -ASPI-515 PO; +ASPI-963 PO; -ESCI10TA5 PO; +ESCI10TA97 PO
--- NOTE | 2020-05-29 12:52 | NUR ---
PT CAME IN CO LEFT LOWER LEG SWELLING, REDNESS AND PAIN. PT AMBUALTED SAFELY WITH WALKER. PT WENT TO [facility] AND WAS SENT TO ER. PT RESTING IN [facility]. CONNECTED TO ALL MONITORING EQUIPMENT.
--- NOTE | 2020-05-29 13:26 | NUR ---
PT RESTING IN [facility]. VSS. NAD.
[2020-05-29] MEDS ORDERED: SODIUM CHLORIDE FLUSH 10ML SYR IVF ONE (13:30)
[2020-05-29 13:38] LABS: BASOPHILS % (AUTO) 1 % (0-1); EOSINOPHILS % (AUTO) 3 % (1-7); LYMPHOCYTES % (AUTO) 24 % (22-44); MEAN CORPUSCULAR HGB CONC 34.2 g/dL (32.4-35.8); MONOCYTES % (AUTO) 13 % (2-9); NEUTROPHILS % (AUTO) 59 % (42-75); PLATELET COUNT 163 x10^3/uL (130-400); RED CELL DISTRIBUTION WIDTH 13.9 % (9.6-15.2)
[2020-05-29 13:45] LABS: ANION GAP 6 mmol/L (5-15); CHLORIDE 101 mmol/L (98-107); CREATININE 1.85 mg/dL (0.55-1.02)
[2020-05-29 13:59] LABS: MD NO
--- NOTE | 2020-05-29 15:02 | NUR ---
PT RESTING IN [facility]. PT UP FOR RECHECK
[2020-05-29] MEDS ORDERED: CEFTRIAXONE PMX 1GM/50ML 50 ML ONE (15:25)
[2020-05-29] MEDS ORDERED: CEFTRIAXONE PMX 1GM/50ML 50 ML IVPB ONE (15:30)
--- NOTE | 2020-05-29 15:33 | NUR ---
IV ABX INFUSING AFTER BLOOD CULTURES DRAWN
[2020-05-29] MEDS ORDERED: SODIUM CHLORIDE FLUSH 10ML SYR IVF PRN (16:00)
[2020-05-29] MEDS ORDERED: ERGOCALCIFEROL 50,000 UNIT CAPSULE PO SCH (16:30)
[2020-05-29] MEDS ORDERED: ACETAMINOPHEN 325 MG TABLET PO PRN (16:30)
[2020-05-29] MEDS ORDERED: ONDANSETRON 2MG/ML, 2ML IVPush PRN (16:30)
[2020-05-29] MEDS ORDERED: DOCUSATE 100 MG CAPSULE PO PRN (16:30)
[2020-05-29] MEDS ORDERED: ONDANSETRON ODT 4 MG PO PRN (16:30)
--- NOTE | 2020-05-29 16:33 | NUR ---
pt to ct at this time
[2020-05-29] MEDS: AMPICILLIN/SULBACTAM 1,500 MG in SODIUM CHLORIDE 0.9% 50 ML IV SCH (17:55)
[2020-05-29] MEDS: INSULIN LISPRO 100 UNITS/ML, PEN SQ-INSULIN SCH ×2 (17:57→20:58)
[2020-05-29 18:15] VITALS: BP 184/77
[2020-05-29] MEDS: LACTATED RINGERS 1,000 ML IV SCH (18:30)
[2020-05-29 18:47] VITALS: BP 161/83
[2020-05-29] MEDS: HEPARIN 5,000 UNITS/ML, 1ML SQ SCH (20:56)
[2020-05-29] MEDS: INSULIN GLARGINE 100 UNITS/ML, PEN SQ-INSULIN SCH (20:57)
[2020-05-29] MEDS: FUROSEMIDE 20 MG TABLET PO SCH (20:58)
[2020-05-29] MEDS: GABAPENTIN 100 MG CAPSULE PO SCH (20:58)
[2020-05-29] MEDS: ATORVASTATIN 40 MG TABLET PO SCH (20:58)
[2020-05-29] MEDS: CARVEDILOL 3.125 MG TABLET PO SCH (20:58)
[2020-05-29] MEDS: LACTOBACILLUS CHEW TABLET PO SCH (20:58)
[2020-05-29] MEDS: POTASSIUM CHLORIDE 20 MEQ TAB.ER.PRT PO SCH (20:58)
[2020-05-30 00:37] VITALS: BP 121/55
[2020-05-30] MEDS: AMPICILLIN/SULBACTAM 1,500 MG in SODIUM CHLORIDE 0.9% 50 ML IV SCH ×3 (01:17→17:03)
[2020-05-30] MEDS: HEPARIN 5,000 UNITS/ML, 1ML SQ SCH ×3 (04:57→20:29)
[2020-05-30 05:32] LABS: BASOPHILS % (AUTO) 1 % (0-1); EOSINOPHILS % (AUTO) 2 % (1-7); LYMPHOCYTES % (AUTO) 25 % (22-44); MEAN CORPUSCULAR HEMOGLOBIN 32.5 pg (27.0-34.8); MEAN CORPUSCULAR HGB CONC 33.5 g/dL (32.4-35.8); MONOCYTES % (AUTO) 12 % (2-9); NEUTROPHILS % (AUTO) 60 % (42-75); PLATELET COUNT 158 x10^3/uL (130-400); RED BLOOD COUNT 3.27 x10^6/uL (3.82-5.3); RED CELL DISTRIBUTION WIDTH 13.7 % (9.6-15.2)
[2020-05-30 05:35] LABS: MD NO
[2020-05-30 05:47] LABS: CHLORIDE 106 mmol/L (98-107)
[2020-05-30 05:49] LABS: ANION GAP 5 mmol/L (5-15); CREATININE 1.58 mg/dL (0.55-1.02)
[2020-05-30 07:14] VITALS: BP 111/72
[2020-05-30] MEDS: LEVOTHYROXINE 112 MCG TABLET PO SCH (08:30)
[2020-05-30] MEDS: LINAGLIPTIN 5 MG TAB PO SCH (08:30)
[2020-05-30] MEDS: POTASSIUM CHLORIDE 20 MEQ TAB.ER.PRT PO SCH ×2 (08:30→20:31)
[2020-05-30] MEDS: ASPIRIN 81 MG TABLET EC PO SCH (08:30)
[2020-05-30] MEDS: LACTOBACILLUS CHEW TABLET PO SCH ×3 (08:30→20:30)
[2020-05-30] MEDS: CALCITRIOL 0.25 MCG CAPSULE PO SCH (08:31)
[2020-05-30] MEDS: ESCITALOPRAM 10MG TABLET PO SCH (08:31)
[2020-05-30] MEDS: CARVEDILOL 3.125 MG TABLET PO SCH ×2 (08:31→20:30)
[2020-05-30] MEDS: PANTOPRAZOLE 40MG TABLET PO SCH (08:31)
[2020-05-30] MEDS: FUROSEMIDE 20 MG TABLET PO SCH ×2 (08:31→20:32)
[2020-05-30] MEDS: GABAPENTIN 100 MG CAPSULE PO SCH ×3 (08:34→20:30)
[2020-05-30] MEDS: LACTATED RINGERS 1,000 ML IV SCH ×2 (09:51→23:05)
[2020-05-30] MEDS: INSULIN LISPRO 100 UNITS/ML, PEN SQ-INSULIN SCH ×3 (11:50→20:30)
[2020-05-30 13:11] VITALS: BP 133/68
[2020-05-30 18:58] VITALS: BP 158/76
[2020-05-30] MEDS: ATORVASTATIN 40 MG TABLET PO SCH (20:30)
[2020-05-30] MEDS: INSULIN GLARGINE 100 UNITS/ML, PEN SQ-INSULIN SCH (20:30)
[2020-05-30] MEDS ORDERED: DEXTROSE 4 GM TAB.CHEW PO PRN (21:30)
[2020-05-30] MEDS ORDERED: DEXTROSE 50%, 50ML SYRINGE IVPush PRN (21:30)
[2020-05-30] MEDS ORDERED: GLUCAGON 1 MG IM PRN (21:30)
[2020-05-31 00:23] VITALS: BP 103/70
[2020-05-31] MEDS: AMPICILLIN/SULBACTAM 1,500 MG in SODIUM CHLORIDE 0.9% 50 ML IV SCH (01:31)
[2020-05-31] MEDS: HEPARIN 5,000 UNITS/ML, 1ML SQ SCH ×2 (04:38→11:47)
[2020-05-31 04:44] LABS: ANION GAP 3 mmol/L (5-15); CALCIUM 8.1 mg/dL (8.5-10.1); CHLORIDE 108 mmol/L (98-107); CREATININE 1.25 mg/dL (0.55-1.02)
[2020-05-31] MEDS: INSULIN LISPRO 100 UNITS/ML, PEN SQ-INSULIN SCH ×2 (07:00→10:59)
[2020-05-31] MEDS ORDERED: AMOXICILLIN/CLAV 500-125MG TABLET PO SCH (07:30)
[2020-05-31] MEDS: LACTOBACILLUS CHEW TABLET PO SCH (07:43)
[2020-05-31] MEDS: LINAGLIPTIN 5 MG TAB PO SCH (07:43)
[2020-05-31] MEDS: PANTOPRAZOLE 40MG TABLET PO SCH (07:43)
[2020-05-31] MEDS: POTASSIUM CHLORIDE 20 MEQ TAB.ER.PRT PO SCH (07:43)
[2020-05-31] MEDS: FUROSEMIDE 20 MG TABLET PO SCH (07:43)
[2020-05-31] MEDS: ESCITALOPRAM 10MG TABLET PO SCH (07:43)
[2020-05-31] MEDS: ASPIRIN 81 MG TABLET EC PO SCH (07:43)
[2020-05-31] MEDS: LEVOTHYROXINE 112 MCG TABLET PO SCH (07:43)
[2020-05-31] MEDS: CALCITRIOL 0.25 MCG CAPSULE PO SCH (07:44)
[2020-05-31] MEDS: CARVEDILOL 3.125 MG TABLET PO SCH (07:44)
[2020-05-31] MEDS: GABAPENTIN 100 MG CAPSULE PO SCH (07:46)
[2020-05-31 07:50] VITALS: BP 159/73
[2020-05-31 08:40] LABS: CLOSTRIDIUM DIFFICILE ANTIGEN NEGATIVE; CLOSTRIDIUM DIFFICILE TOXIN NEGATIVE (Negative)
[2020-05-31] MEDS ORDERED: AMOX-367 PO ×2 (09:54)
== END 2020-05-31 12:21 | disposition home or self-care (01) ==
LOC: ED 12:53 → EDIP 15:50 → INTOOBSV 15:50 → SUATTDRO 15:54 → 3N 16:59 → DCLOUNGE 05-31 12:01 → UNDODISIN 05-31 12:21
PROVIDERS: ADMIT Family Medicine; ATTEND Family Medicine
DX: L03.116 Cellulitis of left lower limb (principal); N17.9 Acute kidney failure, unspecified; E03.9 Hypothyroidism, unspecified; I11.0 Hypertensive heart disease with heart failure; I50.9 Heart failure, unspecified; I27.20 Pulmonary hypertension, unspecified; E11.65 Type 2 diabetes mellitus with hyperglycemia; E11.40 Type 2 diabetes mellitus with diabetic neuropathy, unspecified; I25.10 Atherosclerotic heart disease of native coronary artery without angina pectoris; E78.5 Hyperlipidemia, unspecified; Z86.711 Personal history of pulmonary embolism; Z79.4 Long term (current) use of insulin; Z79.899 Other long term (current) drug therapy; Z85.850 Personal history of malignant neoplasm of thyroid; Z87.891 Personal history of nicotine dependence
CPT/HCPCS: 36415; 73700; 80048; 82040; 82947; 82962; 83735; 85025; 87040; 87324; 93971; 96361; 96365; 96366; 96372; 96375; 97163; 97165; 99285; G0378; J0295; J0696; J1644; J1815; J7120; 96374

== ENCOUNTER 2020-06-06 00:59 | Emergency (ER) | payer MEDICARE, BC ==
[~2020-06-06] VITALS: Ht 157.5 cm; Wt 65.0 kg
[~2020-06-06 00:59] MED LIST changes: +AMOX-367 PO
--- NOTE | 2020-06-06 01:07 | NUR ---
Pt arrives via [facility] from home- reports burning epigastric pain 01/28 that started at 2200 today. Hx pacemaker, HTN, CHF, COPD. Pt denies sore throat, fever/chills, SOB, cough. Hooked up to monitor, EKG done.
--- NOTE | 2020-06-06 01:10 | NUR ---
XR at bedside
[2020-06-06] MEDS ORDERED: MORPHINE SULFATE 4 MG/ML, 1ML IVPush PRN (01:30)
[2020-06-06] MEDS ORDERED: PROMETHAZINE 25 MG/ML, 1ML IM ONE (01:30)
[2020-06-06] MEDS ORDERED: SODIUM CHLORIDE FLUSH 10ML SYR IVF ONE (01:30)
[2020-06-06] MEDS ORDERED: MAALOX/HYOSCYAMINE/LIDOCAINE 45 ML BTL PO ONE (01:30)
[2020-06-06 01:46] LABS: BASOPHILS % (AUTO) 0 % (0-1); EOSINOPHILS % (AUTO) 4 % (1-7); LYMPHOCYTES % (AUTO) 15 % (22-44); MEAN CORPUSCULAR HEMOGLOBIN 32.1 pg (27.0-34.8); MEAN CORPUSCULAR HGB CONC 33.5 g/dL (32.4-35.8); MEAN PLATELET VOLUME 8.2 fL (7.4-10.4); MONOCYTES % (AUTO) 5 % (2-9); NEUTROPHILS % (AUTO) 76 % (42-75); PLATELET COUNT 248 x10^3/uL (130-400); RED BLOOD COUNT 3.88 x10^6/uL (3.82-5.3); RED CELL DISTRIBUTION WIDTH 13.6 % (9.6-15.2)
[2020-06-06 01:47] LABS: MD NO
[2020-06-06 02:00] LABS: ALBUMIN 3.2 g/dL (3.4-5.0); ANION GAP 10 mmol/L (5-15); CALCIUM 8.3 mg/dL (8.5-10.1); CHLORIDE 100 mmol/L (98-107)
[2020-06-06 02:05] LABS: ALANINE AMINOTRANSFERASE 25 U/L (12-78); ALKALINE PHOSPHATASE 95 U/L (45-117); BILIRUBIN,TOTAL 0.3 mg/dL (0.2-1.0); CREATININE 1.68 mg/dL (0.55-1.02); TOTAL PROTEIN 8.1 g/dL (6.4-8.2); TROPONIN I < 0.015 ng/mL (0.000-0.045)
[2020-06-06] MEDS ORDERED: PROMETHAZINE 25 MG/ML, 1ML ONE (02:10)
[2020-06-06] MEDS ORDERED: MAALOX/HYOSCYAMINE/LIDOCAINE 45 ML BTL ONE (02:10)
[2020-06-06] MEDS ORDERED: MORPHINE SULFATE 4 MG/ML, 1ML ONE (02:10)
--- NOTE | 2020-06-06 02:15 | NUR ---
Pt ambulating to bathroom- 1 person assist. UA collected.
--- NOTE | 2020-06-06 02:28 | NUR ---
IV inserted, medicated per eMAR.
--- NOTE | 2020-06-06 02:32 | NUR ---
Pt to CT.
[2020-06-06] MEDS ORDERED: OMNIPAQUE 350 MG/ML, 100ML BOTTLE ONE (02:42)
--- NOTE | 2020-06-06 02:44 | NUR ---
Pt back from CT.
--- NOTE | 2020-06-06 04:24 | NUR ---
Pt with RA sats 88%, remains sleepy from meds. Pt does awake to verbal, is A&O, but has difficulty time staying awake. RA drops to 88%. MOA, non -labored breathing. 2L NC placed on patient. EDP aware. Will monitor.
--- NOTE | 2020-06-06 06:18 | NUR ---
Pt remains with RA at 88-90%. Pt slow to BR, fell asleep on the toilet. Unable to make phone call, keeps falling asleep. BG [id number]. Pt MOA, is easily arousable, but nods off quickly. Pt back to bed. on 1L NC. Physician aware. Will continue to monitor.
--- NOTE | 2020-06-06 06:53 | NUR ---
Report received from LENI Randall
--- NOTE | 2020-06-06 08:30 | NUR ---
PT TAKEN OFF OXYGEN AND GIVEN BREAKFAST TRAY. PT DROWSY, BUT ABLE TO MAINTAIN OXYGEN SATURATIONS.
[2020-06-06 08:47] VITALS: BP 98/56
--- NOTE | 2020-06-06 10:00 | NUR ---
DISCHARGE INSTRUCTIONS REVIEWED WITH PATIENT AND SON. PT AWAKE AND ALERT, MAINTAINNG OPXYGEN SATURATIONS WITHOUT O2. PT TAKEN TO CAR VIA WHEELCHAIR BY RN. ALL QUESTIONS ANSWERED AT THIS TIME.
== END 2020-06-06 10:04 | disposition home or self-care (01) ==
LOC: ED 01:42
DX: K29.00 Acute gastritis without bleeding (principal); R93.5 Abnormal findings on diagnostic imaging of other abdominal regions, including retroperitoneum; I51.7 Cardiomegaly; K76.0 Fatty (change of) liver, not elsewhere classified; K80.20 Calculus of gallbladder without cholecystitis without obstruction; R94.31 Abnormal electrocardiogram [ECG] [EKG]; E11.9 Type 2 diabetes mellitus without complications; I25.10 Atherosclerotic heart disease of native coronary artery without angina pectoris; E78.5 Hyperlipidemia, unspecified; E03.9 Hypothyroidism, unspecified; Z87.891 Personal history of nicotine dependence; Z88.2 Allergy status to sulfonamides
CPT/HCPCS: 36415; 71045; 74177; 80053; 80320; 82962; 83690; 84484; 85025; 93005; 96372; 96374; 99285; J2270; J2550; Q9967; G0480

== ENCOUNTER 2020-07-19 09:22 | Inpatient (IN) | payer MEDICARE, BC ==
[~2020-07-19] VITALS: Ht 162.6 cm; Wt 65.3 kg
--- NOTE | 2020-07-19 09:33 | NUR ---
PT BROGHT IN BY HARVEY FROM HOME WITH CHIEF COMPLAINT OF SOB DEVELOPING THIS AM WIHT ELEVATED BLOOD GLUCOSE (REPORTED [id number]). PT STATES SHE HASNT TAKEN AM MEDS. THE PATIENT ARRIVED A&O, AMBULATED TO BATHROOM WITH ASSISTANCE. BENOIT TOLBERT AT BEDSIDE FOR EVALUATION.
--- NOTE | 2020-07-19 09:58 | NUR ---
PT RESTING IN BED GETTING LABS DRAWN, VSS, NADN. WILL MONITOR CLOSELY
[2020-07-19] MEDS ORDERED: SODIUM CHLORIDE FLUSH 10ML SYR IVF ONE (10:00)
[2020-07-19 10:07] LABS: BASOPHILS % (AUTO) 1 % (0-1); EOSINOPHILS % (AUTO) 2 % (1-7); LYMPHOCYTES % (AUTO) 15 % (22-44); MEAN CORPUSCULAR HGB CONC 33.5 g/dL (32.4-35.8); MEAN PLATELET VOLUME 8.5 fL (7.4-10.4); MONOCYTES % (AUTO) 7 % (2-9); NEUTROPHILS % (AUTO) 76 % (42-75); PLATELET COUNT 195 x10^3/uL (130-400); RED BLOOD COUNT 3.96 x10^6/uL (3.82-5.3)
[2020-07-19 10:15] LABS: MD NO
--- NOTE | 2020-07-19 10:15 | NUR ---
Pt had call light on to report that O2 wasn't on. RA sat 96%. Pt educated on this, pt states "but I can't breathe." 2L placed for comfort, pt sleeping now.
[2020-07-19 10:18] LABS: ALBUMIN 3.4 g/dL (3.4-5.0); ANION GAP 6 mmol/L (5-15); CALCIUM 8.4 mg/dL (8.5-10.1); CHLORIDE 107 mmol/L (98-107)
[2020-07-19 10:23] LABS: ALANINE AMINOTRANSFERASE 26 U/L (12-78); ALKALINE PHOSPHATASE 88 U/L (45-117); BILIRUBIN,TOTAL 0.3 mg/dL (0.2-1.0); CREATININE 1.47 mg/dL (0.55-1.02); TOTAL PROTEIN 8.2 g/dL (6.4-8.2); TROPONIN I < 0.015 ng/mL (0.000-0.045)
--- NOTE | 2020-07-19 10:43 | NUR ---
pt ambulated with a shuffling gait to for UA with the assistance of this RN. pt states she uses walker at home. pt back to bed and reattached to monitors. nam collins.
[2020-07-19 11:02] LABS: MICROSCOPIC INDICATED
[2020-07-19] MEDS ORDERED: POTASSIUM CHLORIDE 20 MEQ PACKET ONE (11:41)
[2020-07-19] MEDS ORDERED: FUROSEMIDE 40 MG/4 ML ONE (11:41)
[2020-07-19] MEDS ORDERED: POTASSIUM CHLORIDE 20 MEQ TAB.ER.PRT ONE (11:42)
--- NOTE | 2020-07-19 11:44 | NUR ---
[facility] at bedside for evaluation, pt medicated per emar, vss, nadn.
[2020-07-19 11:49] LABS: ACETONE, SERUM Negative (Negative)
--- NOTE | 2020-07-19 11:56 | NUR ---
report given to Ritchie FARRAR, pt to transfer to tele 2, nam collins, michael herndon rec with pt.
[2020-07-19] MEDS ORDERED: DOCUSATE 100 MG CAPSULE PO PRN (12:00)
[2020-07-19] MEDS ORDERED: POTASSIUM CHLORIDE 20 MEQ TAB.ER.PRT PO ONE (12:00)
[2020-07-19] MEDS ORDERED: FUROSEMIDE 40 MG/4 ML IV ONE (12:00)
[2020-07-19] MEDS ORDERED: ACETAMINOPHEN 325 MG TABLET PO PRN (12:00)
[2020-07-19] MEDS ORDERED: MELATONIN 5 MG TABLET PO PRN (12:00)
--- NOTE | 2020-07-19 12:03 | NUR ---
per pt she wears 2 L NC at night.
[2020-07-19 12:50] VITALS: BP 159/76
[2020-07-19] MEDS: CARVEDILOL 3.125 MG TABLET PO SCH ×2 (13:02→21:37)
[2020-07-19] MEDS: LINAGLIPTIN 5 MG TAB PO SCH (13:02)
[2020-07-19] MEDS: GABAPENTIN 100 MG CAPSULE PO SCH ×3 (13:02→21:37)
[2020-07-19] MEDS: MULTIVITAMIN 1 TABLET PO SCH (13:02)
[2020-07-19] MEDS: CALCITRIOL 0.25 MCG CAPSULE PO SCH (13:02)
[2020-07-19] MEDS: ASPIRIN 81 MG TABLET EC PO SCH (13:02)
[2020-07-19] MEDS: PANTOPRAZOLE 40MG TABLET PO SCH (13:02)
[2020-07-19] MEDS: ESCITALOPRAM 10MG TABLET PO SCH (13:03)
[2020-07-19 13:30] LABS: C-REACTIVE PROTEIN, QUANT 0.29 mg/dL (0.02-0.49)
[2020-07-19] MEDS: INSULIN LISPRO 100 UNITS/ML, PEN SQ-INSULIN SCH ×3 (17:04→21:38)
[2020-07-19] MEDS: POTASSIUM CHLORIDE 20 MEQ TAB.ER.PRT PO SCH (17:13)
[2020-07-19] MEDS: FUROSEMIDE 20 MG/2 ML IV SCH (17:13)
[2020-07-19 18:44] VITALS: BP 151/72
[2020-07-19] MEDS ORDERED: INSULIN GLARGINE 100 UNITS/ML, PEN SQ-INSULIN SCH (21:00)
[2020-07-19] MEDS ORDERED: ATORVASTATIN 40 MG TABLET PO SCH (21:00)
[2020-07-19 21:39] VITALS: BP 147/75
[2020-07-20 01:28] VITALS: BP 139/68
[2020-07-20 07:05] VITALS: BP 150/80
[2020-07-20 07:50] LABS: ANION GAP 3 mmol/L (5-15); CALCIUM 8.1 mg/dL (8.5-10.1); CHLORIDE 105 mmol/L (98-107); CREATININE 1.28 mg/dL (0.55-1.02)
[2020-07-20] MEDS: POTASSIUM CHLORIDE 20 MEQ TAB.ER.PRT PO SCH ×2 (08:16→16:23)
[2020-07-20] MEDS: ESCITALOPRAM 10MG TABLET PO SCH (08:16)
[2020-07-20] MEDS: CALCITRIOL 0.25 MCG CAPSULE PO SCH (08:17)
[2020-07-20] MEDS: ASPIRIN 81 MG TABLET EC PO SCH (08:17)
[2020-07-20] MEDS: GABAPENTIN 100 MG CAPSULE PO SCH ×2 (08:17→16:23)
[2020-07-20] MEDS: MULTIVITAMIN 1 TABLET PO SCH (08:17)
[2020-07-20] MEDS: PANTOPRAZOLE 40MG TABLET PO SCH (08:17)
[2020-07-20] MEDS: LINAGLIPTIN 5 MG TAB PO SCH (08:17)
[2020-07-20] MEDS: FUROSEMIDE 20 MG/2 ML IV SCH ×2 (08:17→16:23)
[2020-07-20] MEDS: INSULIN LISPRO 100 UNITS/ML, PEN SQ-INSULIN SCH ×3 (08:19→16:26)
[2020-07-20] MEDS: CARVEDILOL 3.125 MG TABLET PO SCH (08:23)
[2020-07-20 13:20] VITALS: BP 109/62
[2020-07-20] MEDS ORDERED: LEVO88TA4 PO (14:33)
== END 2020-07-20 16:57 | disposition home health service (06) | DRG 189 ==
LOC: ED 10:30 → EDIP 11:19 → 4WST 12:14
PROVIDERS: ADMIT Internal Medicine; ATTEND Internal Medicine
DX: J96.21 Acute and chronic respiratory failure with hypoxia (principal); I50.31 Acute diastolic (congestive) heart failure; N17.9 Acute kidney failure, unspecified; I13.0 Hypertensive heart and chronic kidney disease with heart failure and stage 1 through stage 4 chronic kidney disease, or unspecified chronic kidney disease; E11.42 Type 2 diabetes mellitus with diabetic polyneuropathy; E11.65 Type 2 diabetes mellitus with hyperglycemia; E11.22 Type 2 diabetes mellitus with diabetic chronic kidney disease; E87.6 Hypokalemia; E89.0 Postprocedural hypothyroidism; I25.10 Atherosclerotic heart disease of native coronary artery without angina pectoris; I48.91 Unspecified atrial fibrillation; N18.9 Chronic kidney disease, unspecified; Z66 Do not resuscitate; Z79.4 Long term (current) use of insulin; Z83.3 Family history of diabetes mellitus; Z85.850 Personal history of malignant neoplasm of thyroid; Z86.711 Personal history of pulmonary embolism; Z87.891 Personal history of nicotine dependence; Z88.8 Allergy status to other drugs, medicaments and biological substances; Z98.49 Cataract extraction status, unspecified eye; Z79.82 Long term (current) use of aspirin; Z82.3 Family history of stroke; Z80.9 Family history of malignant neoplasm, unspecified; Z82.49 Family history of ischemic heart disease and other diseases of the circulatory system
CPT/HCPCS: 36415; 71045; 80048; 80053; 81001; 82010; 82962; 83615; 83880; 84439; 84443; 84484; 85025; 85379; 86140; 87086; 93005; 96374; G0378; J1940; J1815

== ENCOUNTER 2020-09-11 15:32 | Emergency (ER) | payer MEDICARE, BC ==
[~2020-09-11] VITALS: Ht 157.5 cm; Wt 64.3 kg
[~2020-09-11 15:32] MED LIST changes: +LEVO88TA4 PO
[2020-09-11 15:57] LABS: BASOPHILS % (AUTO) 1 % (0-1); EOSINOPHILS % (AUTO) 5 % (1-7); LYMPHOCYTES % (AUTO) 21 % (22-44); MEAN CORPUSCULAR HGB CONC 33.7 g/dL (32.4-35.8); MEAN PLATELET VOLUME 8.4 fL (7.4-10.4); MONOCYTES % (AUTO) 7 % (2-9); NEUTROPHILS % (AUTO) 68 % (42-75); PLATELET COUNT 208 x10^3/uL (130-400); RED BLOOD COUNT 3.93 x10^6/uL (3.82-5.3); RED CELL DISTRIBUTION WIDTH 13.4 % (9.6-15.2)
[2020-09-11] MEDS ORDERED: DIPH,PERTUSS(ACELL),TET VAC/PF 0.5 ML IM-VACC ONE (16:00)
--- NOTE | 2020-09-11 16:02 | NUR ---
PT IN HOSPITAL GOWN, ON VITALS MONITORS. PT GIVEN ICE PACK FOR KNEE PAIN. PT HAS CALL LIGHT WITHIN REACH. PT SON KIMBERLY LIVES NEAR PT AND ASSISTS HER AT HOME. PT DOES NOT KNOW HER HOME MEDS, STTED SHE KNOWS SHE IS TAKING THE PILLS SHE NEEDS TO TAKE.
[2020-09-11 16:03] LABS: MD NO
[2020-09-11 16:10] LABS: ALBUMIN 3.2 g/dL (3.4-5.0); ANION GAP 5 mmol/L (5-15); CHLORIDE 100 mmol/L (98-107)
[2020-09-11 17:31] VITALS: BP 152/56
== END 2020-09-11 18:17 | disposition home or self-care (01) ==
LOC: ED 18:04
DX: G89.11 Acute pain due to trauma (principal); M25.561 Pain in right knee; L03.115 Cellulitis of right lower limb; I10 Essential (primary) hypertension; E11.9 Type 2 diabetes mellitus without complications; X58.XXXA Exposure to other specified factors, initial encounter; Y93.89 Activity, other specified; Y92.89 Other specified places as the place of occurrence of the external cause; Y99.8 Other external cause status
CPT/HCPCS: 36415; 80048; 82040; 85025; 90471; 90715; 93005